=== PATIENT | female | born 1975 | race Caucasian/White ===

== ENCOUNTER 2020-09-02 12:27 | Emergency (ER) | payer BC, OTHER | END 2020-09-02 14:13 | disposition home or self-care (01) | LOC: ER1 12:27 | DX: S83.92XA Sprain of unspecified site of left knee, initial encounter (principal); Z88.2 Allergy status to sulfonamides; W22.8XXA Striking against or struck by other objects, initial encounter; Y92.009 Unspecified place in unspecified non-institutional (private) residence as the place of occurrence of the external cause | CPT/HCPCS: 73562; 85379; 96372; 99283; J1650 ==

== ENCOUNTER → 2020-09-03 | Outpatient (CLI) | payer BC, OTHER | LOC: US 09:54 | DX: R22.42 Localized swelling, mass and lump, left lower limb (principal) | CPT/HCPCS: 93971 ==

== ENCOUNTER 2020-11-06 15:04 | Emergency (ER) | payer BC ==
[~2020-11-06] VITALS: Ht 162.6 cm; Wt 61.2 kg
== END 2020-11-06 19:57 | disposition home or self-care (01) ==
LOC: ER1 15:04
DX: Z23 Encounter for immunization (principal); U07.1 COVID-19; Z88.2 Allergy status to sulfonamides
CPT/HCPCS: 99283; M0243

== ENCOUNTER → 2021-06-05 | Outpatient (CLI) | payer OTHER | LOC: KOH-I 09:43 | DX: I82.409 Acute embolism and thrombosis of unspecified deep veins of unspecified lower extremity (principal) | CPT/HCPCS: 93971 ==